=== PATIENT | male | born 1960 | race American Indian/Alaskan Native ===

== ENCOUNTER 2017-10-01 22:38 | Inpatient (IN) | payer OTHER ==
[2017-10-02] MEDS ORDERED: ZOFRAN IV ONE (06:38)
[2017-10-02] MEDS ORDERED: NACL 0.9% 1000 ML 1,000 ML IV ONE ×2 (06:38→10:27)
[2017-10-02] MEDS ORDERED: PROTONIX IV ONE (06:38)
[2017-10-02] MEDS ORDERED: TORADOL IV ONE (06:38)
--- NOTE | 2017-10-02 06:40 | Emergency Department Report ---
ED Abdominal Pain HPI - General Chief Complaint: Abdominal Pain Stated Complaint: ABD PAIN Time Seen by Provider: 10/02/17 06:27 Source: patient Mode of arrival: Ambulatory Limitations: No Limitations - History of Present Illness MD Complaint: abdominal pain -: days(s) (2) Location: diffuse Radiation: none Migration to: no migration Severity: severe Severity scale (0 -10): 10 Quality: sharp Consistency: constant Improves With: nothing Worsens With: nothing Associated Symptoms: nausea, vomiting. denies: diarrhea, constipation - Related Data Home Medications Medication Instructions Recorded Confirmed Last Taken No Known Home Medications [No 10/02/17 10/02/17 Unknown Reported Home Medications] Allergies Allergy/AdvReac Type Severity Reaction Status Date / Time No Known Allergies Allergy Verified 10/02/17 06:58 ED Review of Systems ROS: Stated complaint: ABD PAIN Other details as noted in HPI Comment: All other systems reviewed and negative Constitutional: denies: chills, fever Eyes: denies: eye pain, eye discharge ENT: denies: ear pain Respiratory: denies: cough, orthopnea, shortness of breath Cardiovascular: denies: chest pain, palpitations, dyspnea on exertion Endocrine: no symptoms reported Gastrointestinal: abdominal pain, nausea, vomiting. denies: diarrhea Genitourinary: denies: urgency, dysuria, frequency Musculoskeletal: denies: back pain, joint swelling Skin: denies: rash, lesions Neurological: denies: headache, weakness Psychiatric: denies: anxiety, depression Hematological/Lymphatic: denies: easy bleeding, easy bruising ED Past Medical Hx - Medications Home Medications: Home Medications Medication Instructions Recorded Confirmed Last Taken Type No Known Home Medications [No 10/02/17 10/02/17 Unknown History Reported Home Medications] ED Physical Exam - General Limitations: No Limitations General appearance: alert, in distress - Head Head exam: Present: atraumatic, normocephalic, normal inspection - Eye Eye exam: Present: normal appearance, PERRL, EOMI Pupils: Present: normal accommodation - ENT ENT exam: Present: normal exam, normal orophraynx, mucous membranes dry - Neck Neck exam: Present: normal inspection, full ROM. Absent: tenderness - Respiratory Respiratory exam: Present: normal lung sounds bilaterally. Absent: respiratory distress, wheezes, rales, rhonchi - Cardiovascular Cardiovascular Exam: Present: regular rate, normal rhythm, normal heart sounds - GI/Abdominal GI/Abdominal exam: Present: soft, tenderness, guarding, rebound, hyperactive bowel sounds, other (Colostomy bag with air.). Absent: distended - Rectal Rectal exam: Present: deferred - Extremities Exam Extremities exam: Present: normal inspection, full ROM, normal capillary refill. Absent: tenderness - Back Exam Back exam: Present: normal inspection, full ROM. Absent: tenderness - Neurological Exam Neurological exam: Present: alert, oriented X3, CN II-XII intact - Psychiatric Psychiatric exam: Present: normal affect, normal mood, depressed - Skin Skin exam: Present: warm, dry, intact, normal color ED Course Vital Signs 10/02/17 10/02/17 03:12 06:58 Temperature 98.1 F 98.4 F Pulse Rate 107 H 78 Respiratory 14 16 Rate Blood Pressure 149/107 157/109 O2 Sat by Pulse 99 96 Oximetry - Reevaluation(s) Reevaluation #1: 10/02/17 11:04 I consulted the General Surgeon division controller Dr Prince Foster, he want the hospitalist to admit patient and he will consult on the patient. I discussed patient care with the hospitalist division controller Dr Garcia, he will admit patient for further evaluation and management. ED Medical Decision Making - Lab Data Result diagrams: 10/02/17 06:47 10/02/17 06:47 - Radiology Data Radiology results: report reviewed, image reviewed - Medical Decision Making Abdominal Pain. Bowel Obstruction. Nausea and Vomiting. Critical Care Time: Yes Critical care time in (mins) excluding proc time.: 45 Critical care attestation.: If time is entered above; I have spent that time in minutes in the direct care of this critically ill patient, excluding procedure time. ED Disposition Clinical Impression: Partial bowel obstruction Qualifiers: Intestinal obstruction type: unspecified Qualified Code(s): K56.600 - Partial intestinal obstruction, unspecified as to cause Abdominal pain Qualifiers: Abdominal location: generalized Qualified Code(s): R10.84 - Generalized abdominal pain Nausea and vomiting Qualifiers: Vomiting type: unspecified Vomiting Intractability: non-intractable Qualified Code(s): R11.2 - Nausea with vomiting, unspecified Disposition: OP ADMIT IP TO THIS HOSP Is pt being admited?: Yes Does the pt Need Aspirin: No Condition: Stable Referrals: PRIMARY CARE,MD [Primary Care Provider] - 3-5 Days
[2017-10-02 06:58] LABS: Basophils % (Auto) 0.5 % (0.0-1.8); Eosinophils # (Auto) 0.2 K/mm3 (0.0-0.4); Eosinophils % (Auto) 1.8 % (0.0-4.3); Hematocrit 43.7 % (35.5-45.6); Hemoglobin 14.5 gm/dl (11.8-15.2); Lymphocytes # (Auto) 1.1 K/mm3 (1.2-5.4); Lymphocytes % (Auto) 13.7 % (13.4-35.0); Mean Corpuscular HGB Conc 33 % (32-34); Mean Corpuscular Hemoglobin 27 pg (28-32); Mean Corpuscular Volume 82 fl (84-94); Monocytes % (Auto) 11.7 % (0.0-7.3); Platelet Count 450 K/mm3 (140-440); Red Blood Count 5.31 M/mm3 (3.65-5.03); Red Cell Distribution Width 16.3 % (13.2-15.2)
--- NOTE | 2017-10-02 07:08 | XRay Report ---
FINAL REPORT EXAM: XR CHEST 1V AP HISTORY: Abdominal Pain TECHNIQUE: AP portable view(s) of the chest obtained. PRIORS: None. FINDINGS: No mediastinal shift. Cardiac silhouette is not enlarged. No pneumothorax, effusion, or focal pulmonary opacity identified. No acute skeletal findings. IMPRESSION: No acute pulmonary finding identified.
--- NOTE | 2017-10-02 07:12 | XRay Report ---
FINAL REPORT EXAM: XR ABDOMEN 1V AP HISTORY: Abdominal Pain COMPARISONS: None. FINDINGS: AP portable supine view of the abdomen and pelvis No evident pneumoperitoneum. Multiple dilated central abdominal loops of small bowel. Moderate stool burden. Distal colonic bowel gas and stool extend into the pelvis. No pathologic calcification or fracture. IMPRESSION: Nonspecific bowel gas pattern, with findings most concerning for partial small bowel obstruction versus ileus and/or slow transit. CT is recommended for more sensitive and specific evaluation. Notification initiated via [employer] learning support aide immediately following this dictation on 10/02/2017.
[2017-10-02 07:14] LABS: INR 0.89 (0.87-1.13)
[2017-10-02 07:17] LABS: Hemolysis Index 0
[2017-10-02 07:32] LABS: Alanine Aminotransferase 15 units/L (7-56); Albumin 3.7 g/dL (3.9-5); BUN/Creatinine Ratio 23; Bilirubin,Direct 0.2 mg/dL (0-0.2); Blood Urea Nitrogen 23 mg/dL (9-20); Calcium 9.6 mg/dL (8.4-10.2)
--- NOTE | 2017-10-02 09:34 | Cat Scan Report ---
CT ABDOMEN PELVIS WITH CONTRAST: HISTORY: abdominal pain. COMPARISON: none. TECHNIQUE: Helical CT in 1.25mm intervals following IV contrast. Sagittal and coronal reconstructions. FINDINGS: Lung bases: Normal. Liver: Normal. Biliary system: Normal. Pancreas: Normal. Spleen: Not confidently identified. Splenectomy? Kidneys/ureters/bladder: Normal. Adrenal glands: Normal. Aorta: Normal. Intestines: There are multiple moderately dilated loops of proximal and mid small bowel. There appears to be a transition point in the right lower quadrant. Distal small bowel loops and colon are decompressed. No obvious mass or acute inflammation. Appendix: Normal. Ascites: Small to medium ascites is identified throughout the abdomen. Adenopathy: None. Musculoskeletal: Intact. No suspicious bony lesion is identified. IMPRESSION: Moderate to high-grade partial small bowel obstruction.
[2017-10-02] MEDS ORDERED: DILAUDID IV ONE (10:28)
[2017-10-02] MEDS ORDERED: TYLENOL PO PRN (10:44)
[2017-10-02] MEDS ORDERED: ZOFRAN IV PRN ×2 (10:44→10:52)
[2017-10-02] MEDS ORDERED: SODIUM CHLORIDE FLUSH SYRINGE 10 ML IV PRN (10:44)
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
[2017-10-02 13:35] LABS: Hyaline Casts,Urine 2 /LPF; Mucus,Urine 3+ /HPF
[2017-10-02 13:49] LABS: Bilirubin,Urine NEG (Negative); Blood,Urine NEG (Negative); Color,Urine Amber (Yellow)
[2017-10-02] MEDS ORDERED: ATIVAN IV ONE (15:52)
[2017-10-02] MEDS ORDERED: NACL 0.9% 1000 ML 2,000 ML IV ONE (15:58)
[2017-10-02] MEDS: D5/0.45NS 1,000 ML IV SCH (16:30)
[2017-10-02] MEDS: SODIUM CHLORIDE FLUSH SYRINGE 10 ML IV SCH (22:05)
[2017-10-03] MEDS: D5/0.45NS 1,000 ML IV SCH ×2 (00:39→10:24)
[2017-10-03 06:35] LABS: Basophils % (Auto) 0.6 % (0.0-1.8); Eosinophils # (Auto) 0.3 K/mm3 (0.0-0.4); Eosinophils % (Auto) 3.7 % (0.0-4.3); Hematocrit 38.7 % (35.5-45.6); Hemoglobin 12.5 gm/dl (11.8-15.2); Lymphocytes # (Auto) 0.9 K/mm3 (1.2-5.4); Lymphocytes % (Auto) 11.6 % (13.4-35.0); Mean Corpuscular HGB Conc 32 % (32-34); Mean Corpuscular Hemoglobin 27 pg (28-32); Mean Corpuscular Volume 84 fl (84-94); Monocytes # (Auto) 0.7 K/mm3 (0.0-0.8); Monocytes % (Auto) 8.6 % (0.0-7.3); Platelet Count 365 K/mm3 (140-440); Red Blood Count 4.63 M/mm3 (3.65-5.03); Red Cell Distribution Width 16.3 % (13.2-15.2)
[2017-10-03 07:02] LABS: BUN/Creatinine Ratio 21; Blood Urea Nitrogen 15 mg/dL (9-20); Calcium 8.6 mg/dL (8.4-10.2); Hemolysis Index 11
--- NOTE | 2017-10-03 08:56 | XRay Report ---
ABDOMINAL SERIES: History: Followup partial small bowel obstruction. A nasogastric tube has been inserted since yesterday's exam which terminates in the fundus of the stomach. No significant change is appreciated in the multiple dilated small bowel loops with large air-fluid levels. The colon is decompressed. No free air is identified. Minor bibasilar atelectatic changes are noted in the lower lobes. Normal heart size and pulmonary vascularity. IMPRESSION: No significant change in the partial small bowel obstruction pattern.
--- NOTE | 2017-10-03 09:23 | Progress Note ---
Assessment and Plan - Patient Problems (1) Partial bowel obstruction Current Visit: Yes Status: Acute Qualifiers: Intestinal obstruction type: unspecified Qualified Code(s): K56.600 - Partial intestinal obstruction, unspecified as to cause Plan to address problem: Patient appears stable with a benign abdomen. Labs are better in that his dehdyration appears improved. Films look stable with air and stool seen in the colon. Would continue current treatment 1 more day. Films in AM. If no obvious improvement, will order small bowel follow through. time=10min (2) Dehydration Current Visit: Yes Status: Resolved Plan to address problem: appears resolved Subjective Date of service: 10/03/17 Patient Reports: Positive: feels better, pain is less. Negative: nausea, vomiting Objective Vital Signs - 12hr 10/02/17 10/03/17 10/03/17 23:36 05:59 06:00 Temperature 98.1 F 98.7 F Pulse Rate 104 H 89 91 H Respiratory 20 20 Rate Blood Pressure 151/99 161/104 O2 Sat by Pulse 94 100 100 Oximetry - General physical appearance no distress, no pain, other (appears sleepy. Not interested in talking. ) - Respiratory normal respiratory effort - Abdomen soft, not tender, distended (mild), not guarding, not rigid, other (ostomy pink. No air or stool in bag currently. NGT with more gastric appearing fluid) - Integumentary no rash, no growths, no abnormal pigmentation - Labs 10/03/17 05:11 10/03/17 05:11 Diabetes panel 10/03/17 Range/Units 05:11 Sodium 139 (137-145) mmol/L Potassium 3.5 L (3.6-5.0) mmol/L Chloride 102.3 (98-107) mmol/L Carbon Dioxide 21 L (22-30) mmol/L BUN 15 (9-20) mg/dL Creatinine 0.7 L D (0.8-1.5) mg/dL Glucose 97 (75-100) mg/dL Calcium 8.6 (8.4-10.2) mg/dL Calcium panel 10/03/17 Range/Units 05:11 Calcium 8.6 (8.4-10.2) mg/dL Pituitary panel 10/03/17 Range/Units 05:11 Sodium 139 (137-145) mmol/L Potassium 3.5 L (3.6-5.0) mmol/L Chloride 102.3 (98-107) mmol/L Carbon Dioxide 21 L (22-30) mmol/L BUN 15 (9-20) mg/dL Creatinine 0.7 L D (0.8-1.5) mg/dL Glucose 97 (75-100) mg/dL Calcium 8.6 (8.4-10.2) mg/dL Adrenal panel 10/03/17 Range/Units 05:11 Sodium 139 (137-145) mmol/L Potassium 3.5 L (3.6-5.0) mmol/L Chloride 102.3 (98-107) mmol/L Carbon Dioxide 21 L (22-30) mmol/L BUN 15 (9-20) mg/dL Creatinine 0.7 L D (0.8-1.5) mg/dL Glucose 97 (75-100) mg/dL Calcium 8.6 (8.4-10.2) mg/dL - Imaging Chest x-ray: report reviewed, image reviewed Abdominal x-ray: report reviewed, image reviewed
[2017-10-03] MEDS: SODIUM CHLORIDE FLUSH SYRINGE 10 ML IV SCH (10:15)
[2017-10-03] MEDS: MORPHINE IV PRN (12:20)
--- NOTE | 2017-10-03 12:50 | Progress Note ---
Assessment and Plan Assessment and plan: 57-year-old -[place] presented to the emergency department complaining of abdominal pain positive last 2 days. Partial small bowel obstruction - CT and x-ray suggestive - Gen. surgery consulted - patient has NG tube in place - Abdominal pain is getting better - Pain control with IV medications Dehydration - On IV fluid - Resolved Hypokalemia - repleted S/P colostomy - Colostomy care DVT prophylaxis - SCDs Disposition - Continue inpatient care History Interval history: Patient was seen and evaluated this morning, abdominal pain subsided, patient has NG tube in place. Hospitalist Physical - Physical exam Narrative exam: Not in cardiopulmonary distress. The patient appeared well nourished and normally developed. Vital signs as documented. Head exam is unremarkable. No scleral icterus . Neck is without jugular venous distension, thyromegaly, or carotid bruits. Lungs are clear to auscultation. Cardiac exam reveals regular rate and Rhythm. First and second heart sounds normal. No murmurs, rubs or gallops. Abdominal exam reveals colostomy bag in the LLQ, abdomen is soft and nontender. Extremities are nonedematous and both femoral and pedal pulses are normal. KNITTER WIRE MESH: Alert and oriented 3. No focal weakness. - Constitutional Vitals: Temp Pulse Resp BP Pulse Ox 98.2 F 98 H 19 164/99 95 10/03/17 11:31 10/03/17 11:31 10/03/17 11:31 10/03/17 11:31 10/03/17 11:31 Results - Labs CBC & Chem 7: 10/03/17 05:11 10/03/17 05:11 Labs: Laboratory Last Values WBC 7.7 K/mm3 (4.5-11.0) 10/03/17 05:11 RBC 4.63 M/mm3 (3.65-5.03) 10/03/17 05:11 Hgb 12.5 gm/dl (11.8-15.2) 10/03/17 05:11 Hct 38.7 % (35.5-45.6) 10/03/17 05:11 MCV 84 fl (84-94) 10/03/17 05:11 MCH 27 pg (28-32) L 10/03/17 05:11 MCHC 32 % (32-34) 10/03/17 05:11 RDW 16.3 % (13.2-15.2) H 10/03/17 05:11 Plt Count 365 K/mm3 (140-440) 10/03/17 05:11 Lymph % (Auto) 11.6 % (13.4-35.0) L 10/03/17 05:11 [place] % (Auto) 8.6 % (0.0-7.3) H 10/03/17 05:11 Eos % (Auto) 3.7 % (0.0-4.3) 10/03/17 05:11 Baso % (Auto) 0.6 % (0.0-1.8) 10/03/17 05:11 Lymph # 0.9 K/mm3 (1.2-5.4) L 10/03/17 05:11 [place] # 0.7 K/mm3 (0.0-0.8) 10/03/17 05:11 Eos # 0.3 K/mm3 (0.0-0.4) 10/03/17 05:11 Baso # 0.0 K/mm3 (0.0-0.1) 10/03/17 05:11 Seg Neutrophils % 75.5 % (40.0-70.0) H 10/03/17 05:11 Seg Neutrophils # 5.8 K/mm3 (1.8-7.7) 10/03/17 05:11 PT 12.5 Sec. (12.2-14.9) 10/02/17 06:47 INR 0.89 (0.87-1.13) 10/02/17 06:47 Sodium 139 mmol/L (137-145) 10/03/17 05:11 Potassium 3.5 mmol/L (3.6-5.0) L 10/03/17 05:11 Chloride 102.3 mmol/L (98-107) 10/03/17 05:11 Carbon Dioxide 21 mmol/L (22-30) L 10/03/17 05:11 Anion Gap 19 mmol/L 10/03/17 05:11 BUN 15 mg/dL (9-20) 10/03/17 05:11 Creatinine 0.7 mg/dL (0.8-1.5) L D 10/03/17 05:11 Estimated GFR > 60 ml/min 10/03/17 05:11 BUN/Creatinine Ratio 21 % 10/03/17 05:11 Glucose 97 mg/dL (75-100) 10/03/17 05:11 POC Glucose 99 (70-105) 10/02/17 21:56 Calcium 8.6 mg/dL (8.4-10.2) 10/03/17 05:11 Total Bilirubin < 0.20 mg/dL (0.1-1.2) 10/02/17 06:47 Direct Bilirubin 0.2 mg/dL (0-0.2) 10/02/17 06:47 Indirect Bilirubin 0.8 mg/dL 10/02/17 06:47 AST 31 units/L (5-40) 10/02/17 06:47 ALT 15 units/L (7-56) 10/02/17 06:47 Alkaline Phosphatase 101 units/L (35-129) 10/02/17 06:47 Total Protein 7.6 g/dL (6.3-8.2) 10/02/17 06:47 Albumin 3.7 g/dL (3.9-5) L 10/02/17 06:47 Albumin/Globulin Ratio 0.9 % 10/02/17 06:47 Amylase 42 units/L (27-131) 10/02/17 06:47 Lipase 21 units/L (13-60) 10/02/17 06:47 Urine Color [place] (Yellow) 10/02/17 11:40 Urine Turbidity Clear (Clear) 10/02/17 11:40 Urine pH 5.0 (5.0-7.0) 10/02/17 11:40 Ur Specific [place] 1.060 (1.003-1.030) H 10/02/17 11:40 Urine Protein 30 mg/dl mg/dL (Negative) 10/02/17 11:40 Urine Glucose (UA) Neg mg/dL (Negative) 10/02/17 11:40 Urine Ketones Neg mg/dL (Negative) 10/02/17 11:40 Urine Blood Neg (Negative) 10/02/17 11:40 Urine Nitrite Neg (Negative) 10/02/17 11:40 Ur Reducing Substances Not Reportable 10/02/17 11:40 Urine Bilirubin Neg (Negative) 10/02/17 11:40 Urine Ictotest Not Reportable 10/02/17 11:40 Urine Urobilinogen 4.0 mg/dL (<2.0) 10/02/17 11:40 Ur Leukocyte Esterase Neg (Negative) 10/02/17 11:40 Urine WBC (Auto) 6.0 /HPF (0.0-6.0) 10/02/17 11:40 Urine RBC (Auto) 6.0 /HPF (0.0-6.0) 10/02/17 11:40 U Epithel Cells (Auto) 2.0 /HPF (0-13.0) 10/02/17 11:40 Hyaline Casts 2 /LPF 10/02/17 11:40 Urine Mucus 3+ /HPF 10/02/17 11:40
[2017-10-03] MEDS: KCL 10MEQ/100ML 10 MEQ/100 ML BAG IV SCH ×2 (17:06→19:20)
[2017-10-04 06:13] LABS: BUN/Creatinine Ratio 17; Blood Urea Nitrogen 10 mg/dL (9-20); Calcium 8.6 mg/dL (8.4-10.2); Hemolysis Index 3
--- NOTE | 2017-10-04 08:21 | Progress Note ---
Assessment and Plan - Patient Problems (1) Partial bowel obstruction Current Visit: Yes Status: Acute Qualifiers: Intestinal obstruction type: unspecified Qualified Code(s): K56.600 - Partial intestinal obstruction, unspecified as to cause Plan to address problem: Patient appears stable with a benign abdomen. Labs are better in that his dehdyration appears improved. Appears to have begun resolution of PSBO. Will clamp NGT and have a trial of clears. Will assess in afternoon. If doing well, will remove NGT. time=10min Subjective Date of service: 10/04/17 Patient Reports: Positive: feels better, pain is less, flatus, bowel movement. Negative: nausea, vomiting Objective Vital Signs - 12hr 10/03/17 10/03/17 10/04/17 22:00 23:37 04:52 Temperature 97.8 F 97.8 F Pulse Rate 92 H 85 Respiratory 22 18 24 Rate Blood Pressure 165/101 149/104 O2 Sat by Pulse 95 96 Oximetry - General physical appearance no distress, no pain, other (looks better. More awake today) - Respiratory normal respiratory effort - Abdomen soft, not tender, bowel sounds normal, not distended, not guarding, not rigid, other (ostomy bag with air and liquid stool) - Integumentary no rash, no growths, no abnormal pigmentation - Labs 10/03/17 05:11 10/04/17 04:55 Diabetes panel 10/04/17 Range/Units 04:55 Sodium 137 (137-145) mmol/L Potassium 3.3 L (3.6-5.0) mmol/L Chloride 99.9 (98-107) mmol/L Carbon Dioxide 25 (22-30) mmol/L BUN 10 (9-20) mg/dL Creatinine 0.6 L (0.8-1.5) mg/dL Glucose 93 (75-100) mg/dL Calcium 8.6 (8.4-10.2) mg/dL Calcium panel 10/04/17 Range/Units 04:55 Calcium 8.6 (8.4-10.2) mg/dL Pituitary panel 10/04/17 Range/Units 04:55 Sodium 137 (137-145) mmol/L Potassium 3.3 L (3.6-5.0) mmol/L Chloride 99.9 (98-107) mmol/L Carbon Dioxide 25 (22-30) mmol/L BUN 10 (9-20) mg/dL Creatinine 0.6 L (0.8-1.5) mg/dL Glucose 93 (75-100) mg/dL Calcium 8.6 (8.4-10.2) mg/dL Adrenal panel 10/04/17 Range/Units 04:55 Sodium 137 (137-145) mmol/L Potassium 3.3 L (3.6-5.0) mmol/L Chloride 99.9 (98-107) mmol/L Carbon Dioxide 25 (22-30) mmol/L BUN 10 (9-20) mg/dL Creatinine 0.6 L (0.8-1.5) mg/dL Glucose 93 (75-100) mg/dL Calcium 8.6 (8.4-10.2) mg/dL
[2017-10-04] MEDS: SODIUM CHLORIDE FLUSH SYRINGE 10 ML IV SCH (10:00)
--- NOTE | 2017-10-04 10:12 | XRay Report ---
Abdomen 2 views: Compared to 10/03/17. History: Followup of small bowel obstruction. Findings: Tip of NG tube is noted in stomach. Distended loops of small bowel are identified with contrast in colon. Colon does not appear distended. Compared to previous study there is more contrast noted in the colon and few loops of small bowel appear less distended compared to previous study. Impression: Some improvement noted compared to previous study.
[2017-10-04] MEDS: PAXIL PO SCH (11:42)
[2017-10-04] MEDS ORDERED: POTASSIUM CHLORIDE FEEDTUBE ONE ×2 (12:51→17:00)
--- NOTE | 2017-10-04 12:51 | Progress Note ---
Assessment and Plan Assessment and plan: 57-year-old -[place]atemalan presented to the emergency department complaining of abdominal pain positive last 2 days. Partial small bowel obstruction - CT and x-ray suggestive, repeat x-ray showed some improvement - Gen. surgery consulted - Patient started on clear liquid diet - Abdominal pain is getting better - Pain control with IV medications Dehydration - resolved, started on clear liquid diet Hypokalemia - repleted S/P colostomy - Colostomy care Patient said he has been taking paxil and i added that DVT prophylaxis - SCDs Disposition - Continue inpatient care History Interval history: Patient was seen and evaluated this morning, abdominal pain subsided, NG tube was clamped but the patient took it off. Hospitalist Physical - Physical exam Narrative exam: Not in cardiopulmonary distress. The patient appeared well nourished and normally developed. Vital signs as documented. Head exam is unremarkable. No scleral icterus . Neck is without jugular venous distension, thyromegaly, or carotid bruits. Lungs are clear to auscultation. Cardiac exam reveals regular rate and Rhythm. First and second heart sounds normal. No murmurs, rubs or gallops. Abdominal exam reveals colostomy bag in the LLQ, abdomen is soft and nontender. Extremities are nonedematous and both femoral and pedal pulses are normal. 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 No focal weakness. - Constitutional Vitals: Temp Pulse Resp BP Pulse Ox 97.8 F 85 24 149/104 96 10/04/17 04:52 10/04/17 04:52 10/04/17 04:52 10/04/17 04:52 10/04/17 04:52 Results - Labs CBC & Chem 7: 10/03/17 05:11 10/04/17 04:55 Labs: Laboratory Last Values WBC 7.7 K/mm3 (4.5-11.0) 10/03/17 05:11 RBC 4.63 M/mm3 (3.65-5.03) 10/03/17 05:11 Hgb 12.5 gm/dl (11.8-15.2) 10/03/17 05:11 Hct 38.7 % (35.5-45.6) 10/03/17 05:11 MCV 84 fl (84-94) 10/03/17 05:11 MCH 27 pg (28-32) L 10/03/17 05:11 MCHC 32 % (32-34) 10/03/17 05:11 RDW 16.3 % (13.2-15.2) H 10/03/17 05:11 Plt Count 365 K/mm3 (140-440) 10/03/17 05:11 Lymph % (Auto) 11.6 % (13.4-35.0) L 10/03/17 05:11 [place] % (Auto) 8.6 % (0.0-7.3) H 10/03/17 05:11 Eos % (Auto) 3.7 % (0.0-4.3) 10/03/17 05:11 Baso % (Auto) 0.6 % (0.0-1.8) 10/03/17 05:11 Lymph # 0.9 K/mm3 (1.2-5.4) L 10/03/17 05:11 [place] # 0.7 K/mm3 (0.0-0.8) 10/03/17 05:11 Eos # 0.3 K/mm3 (0.0-0.4) 10/03/17 05:11 Baso # 0.0 K/mm3 (0.0-0.1) 10/03/17 05:11 Seg Neutrophils % 75.5 % (40.0-70.0) H 10/03/17 05:11 Seg Neutrophils # 5.8 K/mm3 (1.8-7.7) 10/03/17 05:11 PT 12.5 Sec. (12.2-14.9) 10/02/17 06:47 INR 0.89 (0.87-1.13) 10/02/17 06:47 Sodium 137 mmol/L (137-145) 10/04/17 04:55 Potassium 3.3 mmol/L (3.6-5.0) L 10/04/17 04:55 Chloride 99.9 mmol/L (98-107) 10/04/17 04:55 Carbon Dioxide 25 mmol/L (22-30) 10/04/17 04:55 Anion Gap 15 mmol/L 10/04/17 04:55 BUN 10 mg/dL (9-20) 10/04/17 04:55 Creatinine 0.6 mg/dL (0.8-1.5) L 10/04/17 04:55 Estimated GFR > 60 ml/min 10/04/17 04:55 BUN/Creatinine Ratio 17 % 10/04/17 04:55 Glucose 93 mg/dL (75-100) 10/04/17 04:55 POC Glucose 99 (70-105) 10/02/17 21:56 Calcium 8.6 mg/dL (8.4-10.2) 10/04/17 04:55 Total Bilirubin < 0.20 mg/dL (0.1-1.2) 10/02/17 06:47 Direct Bilirubin 0.2 mg/dL (0-0.2) 10/02/17 06:47 Indirect Bilirubin 0.8 mg/dL 10/02/17 06:47 AST 31 units/L (5-40) 10/02/17 06:47 ALT 15 units/L (7-56) 10/02/17 06:47 Alkaline Phosphatase 101 units/L (35-129) 10/02/17 06:47 Total Protein 7.6 g/dL (6.3-8.2) 10/02/17 06:47 Albumin 3.7 g/dL (3.9-5) L 10/02/17 06:47 Albumin/Globulin Ratio 0.9 % 10/02/17 06:47 Amylase 42 units/L (27-131) 10/02/17 06:47 Lipase 21 units/L (13-60) 10/02/17 06:47 Urine Color [place] (Yellow) 10/02/17 11:40 Urine Turbidity Clear (Clear) 10/02/17 11:40 Urine pH 5.0 (5.0-7.0) 10/02/17 11:40 Ur Specific [place] 1.060 (1.003-1.030) H 10/02/17 11:40 Urine Protein 30 mg/dl mg/dL (Negative) 10/02/17 11:40 Urine Glucose (UA) Neg mg/dL (Negative) 10/02/17 11:40 Urine Ketones Neg mg/dL (Negative) 10/02/17 11:40 Urine Blood Neg (Negative) 10/02/17 11:40 Urine Nitrite Neg (Negative) 10/02/17 11:40 Ur Reducing Substances Not Reportable 10/02/17 11:40 Urine Bilirubin Neg (Negative) 10/02/17 11:40 Urine Ictotest Not Reportable 10/02/17 11:40 Urine Urobilinogen 4.0 mg/dL (<2.0) 10/02/17 11:40 Ur Leukocyte Esterase Neg (Negative) 10/02/17 11:40 Urine WBC (Auto) 6.0 /HPF (0.0-6.0) 10/02/17 11:40 Urine RBC (Auto) 6.0 /HPF (0.0-6.0) 10/02/17 11:40 U Epithel Cells (Auto) 2.0 /HPF (0-13.0) 10/02/17 11:40 Hyaline Casts 2 /LPF 10/02/17 11:40 Urine Mucus 3+ /HPF 10/02/17 11:40
--- NOTE | 2017-10-04 16:09 | Event Note ---
Date: 10/04/17 Planned f/u - Pt reports that he sneezed out the NGT, but he feels better now. I advised that he stay on clears for now and go very slowly. We will slowly advance his diet over the weekend as he tolerates it. Please call with questions.
[2017-10-05 05:50] LABS: BUN/Creatinine Ratio 11; Blood Urea Nitrogen 8 mg/dL (9-20); Calcium 9.2 mg/dL (8.4-10.2); Hemolysis Index 61
[2017-10-05] MEDS: SODIUM CHLORIDE FLUSH SYRINGE 10 ML IV SCH ×3 (10:58→11:00)
[2017-10-05] MEDS: PAXIL PO SCH (10:58)
--- NOTE | 2017-10-05 12:28 | Progress Note ---
Assessment and Plan Assessment and plan: 57-year-old -[place]ian presented to the emergency department complaining of abdominal pain positive last 2 days. Partial small bowel obstruction - CT and x-ray suggestive, repeat x-ray showed some improvement - Gen. surgery consult appreciated - Patient's diet advanced to full liquid diet - Abdominal pain is getting better - Pain is controlled Dehydration - resolved Hypokalemia - repleted - corrected S/P colostomy - Colostomy care Patient is on paxil DVT prophylaxis - SCDs Disposition - Continue inpatient care History Interval history: Patient was seen and evaluated this morning, abdominal pain subsided, Patient tolerated clear liquid diet, advanced to full liquid Hospitalist Physical - Physical exam Narrative exam: Not in cardiopulmonary distress. The patient appeared well nourished and normally developed. Vital signs as documented. Head exam is unremarkable. No scleral icterus . Neck is without jugular venous distension, thyromegaly, or carotid bruits. Lungs are clear to auscultation. Cardiac exam reveals regular rate and Rhythm. First and second heart sounds normal. No murmurs, rubs or gallops. Abdominal exam reveals colostomy bag in the LLQ, abdomen is soft and nontender. Extremities are nonedematous and both femoral and pedal pulses are normal. FOREIGN DIPLOMAT: Alert and oriented 3. No focal weakness. - Constitutional Vitals: Temp Pulse Resp BP Pulse Ox 97.8 F 63 20 128/81 96 10/05/17 05:21 10/05/17 05:21 10/05/17 05:21 10/05/17 05:21 10/05/17 05:21 Results - Labs CBC & Chem 7: 10/03/17 05:11 10/05/17 04:21 Labs: Laboratory Last Values WBC 7.7 K/mm3 (4.5-11.0) 10/03/17 05:11 RBC 4.63 M/mm3 (3.65-5.03) 10/03/17 05:11 Hgb 12.5 gm/dl (11.8-15.2) 10/03/17 05:11 Hct 38.7 % (35.5-45.6) 10/03/17 05:11 MCV 84 fl (84-94) 10/03/17 05:11 MCH 27 pg (28-32) L 10/03/17 05:11 MCHC 32 % (32-34) 10/03/17 05:11 RDW 16.3 % (13.2-15.2) H 10/03/17 05:11 Plt Count 365 K/mm3 (140-440) 10/03/17 05:11 Lymph % (Auto) 11.6 % (13.4-35.0) L 10/03/17 05:11 [place] % (Auto) 8.6 % (0.0-7.3) H 10/03/17 05:11 Eos % (Auto) 3.7 % (0.0-4.3) 10/03/17 05:11 Baso % (Auto) 0.6 % (0.0-1.8) 10/03/17 05:11 Lymph # 0.9 K/mm3 (1.2-5.4) L 10/03/17 05:11 [place] # 0.7 K/mm3 (0.0-0.8) 10/03/17 05:11 Eos # 0.3 K/mm3 (0.0-0.4) 10/03/17 05:11 Baso # 0.0 K/mm3 (0.0-0.1) 10/03/17 05:11 Seg Neutrophils % 75.5 % (40.0-70.0) H 10/03/17 05:11 Seg Neutrophils # 5.8 K/mm3 (1.8-7.7) 10/03/17 05:11 PT 12.5 Sec. (12.2-14.9) 10/02/17 06:47 INR 0.89 (0.87-1.13) 10/02/17 06:47 Sodium 137 mmol/L (137-145) 10/05/17 04:21 Potassium 4.8 mmol/L (3.6-5.0) D 10/05/17 04:21 Chloride 98.3 mmol/L (98-107) 10/05/17 04:21 Carbon Dioxide 27 mmol/L (22-30) 10/05/17 04:21 Anion Gap 17 mmol/L 10/05/17 04:21 BUN 8 mg/dL (9-20) L 10/05/17 04:21 Creatinine 0.7 mg/dL (0.8-1.5) L 10/05/17 04:21 Estimated GFR > 60 ml/min 10/05/17 04:21 BUN/Creatinine Ratio 11 % 10/05/17 04:21 Glucose 87 mg/dL (75-100) 10/05/17 04:21 POC Glucose 99 (70-105) 10/02/17 21:56 Calcium 9.2 mg/dL (8.4-10.2) 10/05/17 04:21 Total Bilirubin < 0.20 mg/dL (0.1-1.2) 10/02/17 06:47 Direct Bilirubin 0.2 mg/dL (0-0.2) 10/02/17 06:47 Indirect Bilirubin 0.8 mg/dL 10/02/17 06:47 AST 31 units/L (5-40) 10/02/17 06:47 ALT 15 units/L (7-56) 10/02/17 06:47 Alkaline Phosphatase 101 units/L (35-129) 10/02/17 06:47 Total Protein 7.6 g/dL (6.3-8.2) 10/02/17 06:47 Albumin 3.7 g/dL (3.9-5) L 10/02/17 06:47 Albumin/Globulin Ratio 0.9 % 10/02/17 06:47 Amylase 42 units/L (27-131) 10/02/17 06:47 Lipase 21 units/L (13-60) 10/02/17 06:47 Urine Color [place] (Yellow) 10/02/17 11:40 Urine Turbidity Clear (Clear) 10/02/17 11:40 Urine pH 5.0 (5.0-7.0) 10/02/17 11:40 Ur Specific [place] 1.060 (1.003-1.030) H 10/02/17 11:40 Urine Protein 30 mg/dl mg/dL (Negative) 10/02/17 11:40 Urine Glucose (UA) Neg mg/dL (Negative) 10/02/17 11:40 Urine Ketones Neg mg/dL (Negative) 10/02/17 11:40 Urine Blood Neg (Negative) 10/02/17 11:40 Urine Nitrite Neg (Negative) 10/02/17 11:40 Ur Reducing Substances Not Reportable 10/02/17 11:40 Urine Bilirubin Neg (Negative) 10/02/17 11:40 Urine Ictotest Not Reportable 10/02/17 11:40 Urine Urobilinogen 4.0 mg/dL (<2.0) 10/02/17 11:40 Ur Leukocyte Esterase Neg (Negative) 10/02/17 11:40 Urine WBC (Auto) 6.0 /HPF (0.0-6.0) 10/02/17 11:40 Urine RBC (Auto) 6.0 /HPF (0.0-6.0) 10/02/17 11:40 U Epithel Cells (Auto) 2.0 /HPF (0-13.0) 10/02/17 11:40 Hyaline Casts 2 /LPF 10/02/17 11:40 Urine Mucus 3+ /HPF 10/02/17 11:40
--- NOTE | 2017-10-05 12:33 | Progress Note ---
Assessment and Plan 57 yo M with pSBO, resolving Plan: 1. advanced to full liquids by hospitalist service, would continue fulls only and not advance further 2. maintenance IVF 3. prn pain control 4. DVT ppx 5. OOB/ambulate Thank you for this consultation, please call with questions or concerns. Subjective Date of service: 10/05/17 Narrative: Pt seen and examined. c/o crampy abdominal pain at times when he tries to take in too much liquid at one time. His colostomy is working well. No n/v. Objective Vital Signs - 12hr 10/05/17 05:21 Temperature 97.8 F Pulse Rate 63 Respiratory 20 Rate Blood Pressure 128/81 O2 Sat by Pulse 96 Oximetry - General physical appearance Narrative Exam: Gen: AAOx3. NAD CV: S1, S2+ resp: even and unlabored Abd: soft, NT, mildly distended. ostomy with mixture of liquid and soft brown stool in bag. + Bowel sounds in all 4 quadrants. Ext; no c/c/e - Labs 10/03/17 05:11 10/05/17 04:21 Diabetes panel 10/05/17 Range/Units 04:21 Sodium 137 (137-145) mmol/L Potassium 4.8 D (3.6-5.0) mmol/L Chloride 98.3 (98-107) mmol/L Carbon Dioxide 27 (22-30) mmol/L BUN 8 L (9-20) mg/dL Creatinine 0.7 L (0.8-1.5) mg/dL Glucose 87 (75-100) mg/dL Calcium 9.2 (8.4-10.2) mg/dL Calcium panel 10/05/17 Range/Units 04:21 Calcium 9.2 (8.4-10.2) mg/dL Pituitary panel 10/05/17 Range/Units 04:21 Sodium 137 (137-145) mmol/L Potassium 4.8 D (3.6-5.0) mmol/L Chloride 98.3 (98-107) mmol/L Carbon Dioxide 27 (22-30) mmol/L BUN 8 L (9-20) mg/dL Creatinine 0.7 L (0.8-1.5) mg/dL Glucose 87 (75-100) mg/dL Calcium 9.2 (8.4-10.2) mg/dL Adrenal panel 10/05/17 Range/Units 04:21 Sodium 137 (137-145) mmol/L Potassium 4.8 D (3.6-5.0) mmol/L Chloride 98.3 (98-107) mmol/L Carbon Dioxide 27 (22-30) mmol/L BUN 8 L (9-20) mg/dL Creatinine 0.7 L (0.8-1.5) mg/dL Glucose 87 (75-100) mg/dL Calcium 9.2 (8.4-10.2) mg/dL
[2017-10-05] MEDS: MORPHINE IV PRN ×2 (12:37→21:21)
[2017-10-05] MEDS ORDERED: MOTRIN PO ONE (22:00)
[2017-10-05] MEDS ORDERED: AMBIEN PO ONE (22:00)
--- NOTE | 2017-10-06 09:10 | Progress Note ---
Assessment and Plan Assessment and plan: 57-year-old -[place] presented to the emergency department complaining of abdominal pain positive last 2 days. Partial small bowel obstruction - CT and x-ray suggestive, repeat x-ray showed some improvement - Gen. surgery consult appreciated - Patient is on full liquid diet, will be advanced to soft diet to night - Abdominal pain is getting better - Pain is controlled Dehydration - resolved Hypokalemia - repleted - corrected S/P colostomy - Colostomy care Patient is on paxil DVT prophylaxis - SCDs Disposition - Patient will be discharged tomorrow if he tolerates soft diet. History Interval history: Patient was seen and evaluated this morning, abdominal pain subsided, Patient is on full liquid diet Hospitalist Physical - Physical exam Narrative exam: Not in cardiopulmonary distress. The patient appeared well nourished and normally developed. Vital signs as documented. Head exam is unremarkable. No scleral icterus . Neck is without jugular venous distension, thyromegaly, or carotid bruits. Lungs are clear to auscultation. Cardiac exam reveals regular rate and Rhythm. First and second heart sounds normal. No murmurs, rubs or gallops. Abdominal exam reveals colostomy bag in the LLQ, abdomen is soft and nontender. Extremities are nonedematous and both femoral and pedal pulses are normal. 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 No focal weakness. - Constitutional Vitals: Temp Pulse Resp BP Pulse Ox 98.1 F 78 20 156/98 98 10/06/17 05:26 10/06/17 05:26 10/06/17 05:26 10/06/17 05:26 10/06/17 05:26 Results - Labs CBC & Chem 7: 10/03/17 05:11 10/05/17 04:21 Labs: Laboratory Last Values WBC 7.7 K/mm3 (4.5-11.0) 10/03/17 05:11 RBC 4.63 M/mm3 (3.65-5.03) 10/03/17 05:11 Hgb 12.5 gm/dl (11.8-15.2) 10/03/17 05:11 Hct 38.7 % (35.5-45.6) 10/03/17 05:11 MCV 84 fl (84-94) 10/03/17 05:11 MCH 27 pg (28-32) L 10/03/17 05:11 MCHC 32 % (32-34) 10/03/17 05:11 RDW 16.3 % (13.2-15.2) H 10/03/17 05:11 Plt Count 365 K/mm3 (140-440) 10/03/17 05:11 Lymph % (Auto) 11.6 % (13.4-35.0) L 10/03/17 05:11 [place] % (Auto) 8.6 % (0.0-7.3) H 10/03/17 05:11 Eos % (Auto) 3.7 % (0.0-4.3) 10/03/17 05:11 Baso % (Auto) 0.6 % (0.0-1.8) 10/03/17 05:11 Lymph # 0.9 K/mm3 (1.2-5.4) L 10/03/17 05:11 [place] # 0.7 K/mm3 (0.0-0.8) 10/03/17 05:11 Eos # 0.3 K/mm3 (0.0-0.4) 10/03/17 05:11 Baso # 0.0 K/mm3 (0.0-0.1) 10/03/17 05:11 Seg Neutrophils % 75.5 % (40.0-70.0) H 10/03/17 05:11 Seg Neutrophils # 5.8 K/mm3 (1.8-7.7) 10/03/17 05:11 PT 12.5 Sec. (12.2-14.9) 10/02/17 06:47 INR 0.89 (0.87-1.13) 10/02/17 06:47 Sodium 137 mmol/L (137-145) 10/05/17 04:21 Potassium 4.8 mmol/L (3.6-5.0) D 10/05/17 04:21 Chloride 98.3 mmol/L (98-107) 10/05/17 04:21 Carbon Dioxide 27 mmol/L (22-30) 10/05/17 04:21 Anion Gap 17 mmol/L 10/05/17 04:21 BUN 8 mg/dL (9-20) L 10/05/17 04:21 Creatinine 0.7 mg/dL (0.8-1.5) L 10/05/17 04:21 Estimated GFR > 60 ml/min 10/05/17 04:21 BUN/Creatinine Ratio 11 % 10/05/17 04:21 Glucose 87 mg/dL (75-100) 10/05/17 04:21 POC Glucose 99 (70-105) 10/02/17 21:56 Calcium 9.2 mg/dL (8.4-10.2) 10/05/17 04:21 Total Bilirubin < 0.20 mg/dL (0.1-1.2) 10/02/17 06:47 Direct Bilirubin 0.2 mg/dL (0-0.2) 10/02/17 06:47 Indirect Bilirubin 0.8 mg/dL 10/02/17 06:47 AST 31 units/L (5-40) 10/02/17 06:47 ALT 15 units/L (7-56) 10/02/17 06:47 Alkaline Phosphatase 101 units/L (35-129) 10/02/17 06:47 Total Protein 7.6 g/dL (6.3-8.2) 10/02/17 06:47 Albumin 3.7 g/dL (3.9-5) L 10/02/17 06:47 Albumin/Globulin Ratio 0.9 % 10/02/17 06:47 Amylase 42 units/L (27-131) 10/02/17 06:47 Lipase 21 units/L (13-60) 10/02/17 06:47 Urine Color Cady (Yellow) 10/02/17 11:40 Urine Turbidity Clear (Clear) 10/02/17 11:40 Urine pH 5.0 (5.0-7.0) 10/02/17 11:40 Ur Specific Sheldon 1.060 (1.003-1.030) H 10/02/17 11:40 Urine Protein 30 mg/dl mg/dL (Negative) 10/02/17 11:40 Urine Glucose (UA) Neg mg/dL (Negative) 10/02/17 11:40 Urine Ketones Neg mg/dL (Negative) 10/02/17 11:40 Urine Blood Neg (Negative) 10/02/17 11:40 Urine Nitrite Neg (Negative) 10/02/17 11:40 Ur Reducing Substances Not Reportable 10/02/17 11:40 Urine Bilirubin Neg (Negative) 10/02/17 11:40 Urine Ictotest Not Reportable 10/02/17 11:40 Urine Urobilinogen 4.0 mg/dL (<2.0) 10/02/17 11:40 Ur Leukocyte Esterase Neg (Negative) 10/02/17 11:40 Urine WBC (Auto) 6.0 /HPF (0.0-6.0) 10/02/17 11:40 Urine RBC (Auto) 6.0 /HPF (0.0-6.0) 10/02/17 11:40 U Epithel Cells (Auto) 2.0 /HPF (0-13.0) 10/02/17 11:40 Hyaline Casts 2 /LPF 10/02/17 11:40 Urine Mucus 3+ /HPF 10/02/17 11:40
[2017-10-06] MEDS: PAXIL PO SCH (09:25)
[2017-10-06] MEDS: SODIUM CHLORIDE FLUSH SYRINGE 10 ML IV SCH ×3 (09:25→22:05)
--- NOTE | 2017-10-06 11:50 | Progress Note ---
Assessment and Plan 57 yo M with pSBO, resolving Plan: 1. patient is clinically improving, tolerated full liquids, and having bowel function - adv to soft diet for dinner 2. dc IVF 3. prn pain control 4. DVT ppx 5. OOB/ambulate Patient may be discharged from surgery standpoint if tolerates soft diet. Thank you for this consultation, please call with questions or concerns. Subjective Date of service: 10/06/17 Narrative: Pt seen and examined. States he had grits this am without any abd pain, n/v. His crampy abdominal pain has improved. No f/c. Ostomy is functioning well. Objective Vital Signs - 12hr 10/06/17 10/06/17 00:00 05:26 Temperature 98.1 F Pulse Rate 78 Respiratory 20 20 Rate Blood Pressure 156/98 O2 Sat by Pulse 98 Oximetry - General physical appearance Narrative Exam: Gen: AAOx3. NAd CV: S1, S2+ Resp: even and unlabored Abd: soft, NT, ND. ostomy with soft formed light brown stool in the bag Ext: no c/c/e - Labs 10/03/17 05:11 10/05/17 04:21
[2017-10-06] MEDS: MOTRIN PO PRN (17:46)
[2017-10-06] MEDS: AMBIEN PO PRN (22:05)
--- NOTE | 2017-10-07 10:42 | XRay Report ---
AP ABDOMEN: HISTORY: Followup partial small bowel obstruction. The nasogastric tube has been removed since 10/04/17. Mild improvement in dilated small bowel loops is demonstrated. Small bowel dilatation has decreased by 25-50%. Normal gas and stool in the colon. IMPRESSION: 25-50% improvement in the small bowel obstruction pattern.
--- NOTE | 2017-10-07 10:50 | Progress Note ---
Assessment and Plan - Patient Problems (1) Partial bowel obstruction Current Visit: Yes Status: Acute Qualifiers: Intestinal obstruction type: unspecified Qualified Code(s): K56.600 - Partial intestinal obstruction, unspecified as to cause Plan to address problem: Patient appears stable with a benign abdomen. Patient continues to improve each time I see him. I would like to make sure he can tolerate a soft diet and his abdominal film is improving before we discharge them. If indeed the film is better and he is tolerating a diet, I think you'd be safe for discharge tomorrow. I will also start him on Senna to minimize constipation and increased stress to the small intestines. time=10min Subjective Date of service: 10/07/17 Patient Reports: Positive: no new complaints, feels better, tolerating liquids well, flatus, bowel movement. Negative: nausea, vomiting Objective Vital Signs - 12hr 10/07/17 10/07/17 00:20 05:21 Temperature 98.4 F 98.8 F Pulse Rate 57 L 63 Respiratory 20 20 Rate Blood Pressure 148/97 136/92 O2 Sat by Pulse 97 98 Oximetry - General physical appearance no distress, no pain, other (looks better) - Eyes normal occular movement - Respiratory normal expansion, normal respiratory effort - Abdomen soft, tender (minimal in epigastric area), bowel sounds normal, not distended, not guarding, not rigid, surgical scars (well healed), other (ostomy bag with moderate amount of air and stool) - Integumentary no rash, no growths, no abnormal pigmentation - Psychiatric oriented to time, oriented to person, oriented to place, speech is normal, memory intact - Labs 10/03/17 05:11 10/05/17 04:21
[2017-10-07] MEDS: SODIUM CHLORIDE FLUSH SYRINGE 10 ML IV SCH ×2 (11:15→22:21)
[2017-10-07] MEDS: PAXIL PO SCH (11:15)
[2017-10-07] MEDS: MOTRIN PO PRN (18:57)
[2017-10-07] MEDS ORDERED: SENOKOT PO SCH (22:00)
[2017-10-07] MEDS: AMBIEN PO PRN (22:20)
[2017-10-08] MEDS ORDERED: APRESOLINE IV PRN (00:31)
[2017-10-08] MEDS: MOTRIN PO PRN ×2 (02:27→08:32)
[2017-10-08] MEDS: PAXIL PO SCH (12:11)
[2017-10-08] MEDS: SODIUM CHLORIDE FLUSH SYRINGE 10 ML IV SCH (12:12)
[2017-10-08 12:50] VITALS: BP 132/91
--- NOTE | 2017-10-08 13:10 | XRay Report ---
AP ABDOMEN: HISTORY: Increased abdominal pain, partial small bowel obstruction. No overwhelming change is appreciated since yesterday's exam. Mildly dilated loops of small bowel in the upper abdomen appear stable. There is normal gas in distal small bowel loops and colon. IMPRESSION: No change in the partial small bowel obstruction pattern since yesterday's exam.
--- NOTE | 2017-10-08 13:24 | Progress Note ---
Assessment and Plan Assessment and plan: 57-year-old -[place] presented to the emergency department complaining of abdominal pain positive last 2 days. Partial small bowel obstruction - Gen. surgery consult appreciated - Repeat X-ray show no change from yesterday - Patient is on full soft diet - patient started to complain abdominal pain Dehydration - resolved Hypokalemia - repleted - corrected S/P colostomy - Colostomy care Patient is on paxil DVT prophylaxis - SCDs Disposition - Per general surgery. History Interval history: Patient was seen and evaluated this morning, Patient is complaining abdominal pain. Hospitalist Physical - Physical exam Narrative exam: Not in cardiopulmonary distress. The patient appeared well nourished and normally developed. Vital signs as documented. Head exam is unremarkable. No scleral icterus . Neck is without jugular venous distension, thyromegaly, or carotid bruits. Lungs are clear to auscultation. Cardiac exam reveals regular rate and Rhythm. First and second heart sounds normal. No murmurs, rubs or gallops. Abdominal exam reveals colostomy bag in the LLQ, abdomen is soft and nontender. Extremities are nonedematous and both femoral and pedal pulses are normal. 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 No focal weakness. - Constitutional Vitals: Temp Pulse Resp BP Pulse Ox 97.9 F 71 18 132/91 97 10/08/17 12:18 10/08/17 12:18 10/08/17 12:18 10/08/17 12:18 10/08/17 12:18 Results - Labs CBC & Chem 7: 10/03/17 05:11 10/05/17 04:21 Labs: Laboratory Last Values WBC 7.7 K/mm3 (4.5-11.0) 10/03/17 05:11 RBC 4.63 M/mm3 (3.65-5.03) 10/03/17 05:11 Hgb 12.5 gm/dl (11.8-15.2) 10/03/17 05:11 Hct 38.7 % (35.5-45.6) 10/03/17 05:11 MCV 84 fl (84-94) 10/03/17 05:11 MCH 27 pg (28-32) L 10/03/17 05:11 MCHC 32 % (32-34) 10/03/17 05:11 RDW 16.3 % (13.2-15.2) H 10/03/17 05:11 Plt Count 365 K/mm3 (140-440) 10/03/17 05:11 Lymph % (Auto) 11.6 % (13.4-35.0) L 10/03/17 05:11 Villalba % (Auto) 8.6 % (0.0-7.3) H 10/03/17 05:11 Eos % (Auto) 3.7 % (0.0-4.3) 10/03/17 05:11 Baso % (Auto) 0.6 % (0.0-1.8) 10/03/17 05:11 Lymph # 0.9 K/mm3 (1.2-5.4) L 10/03/17 05:11 Villalba # 0.7 K/mm3 (0.0-0.8) 10/03/17 05:11 Eos # 0.3 K/mm3 (0.0-0.4) 10/03/17 05:11 Baso # 0.0 K/mm3 (0.0-0.1) 10/03/17 05:11 Seg Neutrophils % 75.5 % (40.0-70.0) H 10/03/17 05:11 Seg Neutrophils # 5.8 K/mm3 (1.8-7.7) 10/03/17 05:11 PT 12.5 Sec. (12.2-14.9) 10/02/17 06:47 INR 0.89 (0.87-1.13) 10/02/17 06:47 Sodium 137 mmol/L (137-145) 10/05/17 04:21 Potassium 4.8 mmol/L (3.6-5.0) D 10/05/17 04:21 Chloride 98.3 mmol/L (98-107) 10/05/17 04:21 Carbon Dioxide 27 mmol/L (22-30) 10/05/17 04:21 Anion Gap 17 mmol/L 10/05/17 04:21 BUN 8 mg/dL (9-20) L 10/05/17 04:21 Creatinine 0.7 mg/dL (0.8-1.5) L 10/05/17 04:21 Estimated GFR > 60 ml/min 10/05/17 04:21 BUN/Creatinine Ratio 11 % 10/05/17 04:21 Glucose 87 mg/dL (75-100) 10/05/17 04:21 POC Glucose 99 (70-105) 10/02/17 21:56 Calcium 9.2 mg/dL (8.4-10.2) 10/05/17 04:21 Total Bilirubin < 0.20 mg/dL (0.1-1.2) 10/02/17 06:47 Direct Bilirubin 0.2 mg/dL (0-0.2) 10/02/17 06:47 Indirect Bilirubin 0.8 mg/dL 10/02/17 06:47 AST 31 units/L (5-40) 10/02/17 06:47 ALT 15 units/L (7-56) 10/02/17 06:47 Alkaline Phosphatase 101 units/L (35-129) 10/02/17 06:47 Total Protein 7.6 g/dL (6.3-8.2) 10/02/17 06:47 Albumin 3.7 g/dL (3.9-5) L 10/02/17 06:47 Albumin/Globulin Ratio 0.9 % 10/02/17 06:47 Amylase 42 units/L (27-131) 10/02/17 06:47 Lipase 21 units/L (13-60) 10/02/17 06:47 Urine Color Cady (Yellow) 10/02/17 11:40 Urine Turbidity Clear (Clear) 10/02/17 11:40 Urine pH 5.0 (5.0-7.0) 10/02/17 11:40 Ur Specific Lohn 1.060 (1.003-1.030) H 10/02/17 11:40 Urine Protein 30 mg/dl mg/dL (Negative) 10/02/17 11:40 Urine Glucose (UA) Neg mg/dL (Negative) 10/02/17 11:40 Urine Ketones Neg mg/dL (Negative) 10/02/17 11:40 Urine Blood Neg (Negative) 10/02/17 11:40 Urine Nitrite Neg (Negative) 10/02/17 11:40 Ur Reducing Substances Not Reportable 10/02/17 11:40 Urine Bilirubin Neg (Negative) 10/02/17 11:40 Urine Ictotest Not Reportable 10/02/17 11:40 Urine Urobilinogen 4.0 mg/dL (<2.0) 10/02/17 11:40 Ur Leukocyte Esterase Neg (Negative) 10/02/17 11:40 Urine WBC (Auto) 6.0 /HPF (0.0-6.0) 10/02/17 11:40 Urine RBC (Auto) 6.0 /HPF (0.0-6.0) 10/02/17 11:40 U Epithel Cells (Auto) 2.0 /HPF (0-13.0) 10/02/17 11:40 Hyaline Casts 2 /LPF 10/02/17 11:40 Urine Mucus 3+ /HPF 10/02/17 11:40
--- NOTE | 2017-10-08 13:55 | Discharge Summary ---
Providers - Providers Date of Admission: 10/02/17 10:44 Attending physician: JONES JOSHUA MD 10/02/17 10:34 Consult to Physician [CONS] Stat Comment: DR GELLER NOTIFIED 1025 Consulting Provider: IVANIA GELLER Physician Instructions: Reason For Exam: Partial SBO Primary care physician: MOPHEAD SEWER Hospitalization Reason for admission: partial small bowel Obstruction Condition: Stable Pertinent studies: CT abdomen Moderate to high-grade partial small bowel obstruction. KUB IMPRESSION: 25-50% improvement in the small bowel obstruction pattern. Hospital course: 57-year-old -[place] male with medical history significant for rectal history of injury, status post colostomy presented to the emergency department c /o of abdominal pain that started 1 day prior to presentation. Pain started around the periumbilical area, cramping, 10 out of 10 in intensity, with no radiation. Patient denied fever, chills, nausea, vomiting. Patient said he passed stool and gas in the colostomy bag. Imaging showed some obstruction. Surgery consulted and evaluated him. Partial small bowel obstruction - Resolving slowly, surgery consult appreciated Dehydration - resolved Hypokalemia - repleted - corrected S/P colostomy - Colostomy care Patient is on paxil Patient tolerated full liquid diet, he passed stool in to the colostomy bag, abdominal pain subsided and patient discharged home with the advice to advance his diet as tolerated. Disposition: - TO HOME OR SELFCARE Time spent for discharge: 31 minutes - Discharge Diagnoses (1) Abdominal pain Status: Acute Qualifiers: Abdominal location: generalized Qualified Code(s): R10.84 - Generalized abdominal pain (2) Nausea and vomiting Status: Acute Qualifiers: Vomiting type: unspecified Vomiting Intractability: non-intractable Qualified Code(s): R11.2 - Nausea with vomiting, unspecified (3) Partial bowel obstruction Status: Acute Qualifiers: Intestinal obstruction type: unspecified Qualified Code(s): K56.600 - Partial intestinal obstruction, unspecified as to cause (4) Dehydration Status: Resolved Core Measure Documentation - Palliative Care Palliative Care/ Comfort Measures: Not Applicable - Core Measures Any of the following diagnoses?: none Exam - Physical Exam Narrative exam: Not in cardiopulmonary distress. The patient appeared well nourished and normally developed. Vital signs as documented. Head exam is unremarkable. No scleral icterus . Neck is without jugular venous distension, thyromegaly, or carotid bruits. Lungs are clear to auscultation. Cardiac exam reveals regular rate and Rhythm. First and second heart sounds normal. No murmurs, rubs or gallops. Abdominal exam reveals colostomy bag in the LLQ, abdomen is soft and nontender. Extremities are nonedematous and both femoral and pedal pulses are normal. 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 No focal weakness. - Constitutional Vitals: Temp Pulse Resp BP Pulse Ox 97.9 F 71 18 132/91 97 10/08/17 12:18 10/08/17 12:18 10/08/17 12:18 10/08/17 12:18 10/08/17 12:18 Plan Activity: no restrictions Weight Bearing Status: Full Weight Bearing Diet: thickened liquids Additional Instructions: Follow up at [facility] in 1-2 weeks Follow up with: PRIMARY CARE, [Primary Care Provider] - 3-5 Days Prescriptions: Sennosides Tab [Senokot] 17.2 mg PO QHS #15 tablet PARoxetine [Paxil] 20 mg PO QDAY #15 tablet
--- NOTE | 2017-10-08 14:04 | Progress Note ---
Assessment and Plan - Patient Problems (1) Partial bowel obstruction Current Visit: Yes Status: Acute Qualifiers: Intestinal obstruction type: unspecified Qualified Code(s): K56.600 - Partial intestinal obstruction, unspecified as to cause Plan to address problem: Patient appears stable. Appears to be no distress. His x-rays unchanged. His exam was completely benign. He has air and stool in the colostomy bag. Perhaps his diet was advanced rapidly. I advised him to stay on a full liquid diet for now. He can advance his diet slowly as tolerated. He is okay for discharge from my perspective. I have communicated this to the hospitalist. time=10min Subjective Date of service: 10/08/17 Patient Reports: Positive: still having pain (feels a little more pain today. Has soft diet today. ). Negative: nausea, vomiting Objective Vital Signs - 12hr 10/08/17 10/08/17 10/08/17 02:27 03:27 12:18 Temperature 97.9 F Pulse Rate 71 Respiratory 18 18 18 Rate Blood Pressure 132/91 O2 Sat by Pulse 97 Oximetry - General physical appearance no distress, no pain, other (Appears comfortable laying in bed) - Eyes normal occular movement - Respiratory normal expansion, normal respiratory effort - Abdomen soft, tender (intermittent and mild on the right side), bowel sounds normal, not distended, not guarding, not rigid, other (air in colostomy bag) - Integumentary no rash, no growths, no abnormal pigmentation - Psychiatric oriented to time, oriented to person, oriented to place, speech is normal, memory intact - Labs 10/03/17 05:11 10/05/17 04:21
--- NOTE | 2017-10-08 16:28 | Progress Note ---
Assessment and Plan Assessment and plan: 57-year-old -[place] presented to the emergency department complaining of abdominal pain positive last 2 days. Partial small bowel obstruction - Gen. surgery consult appreciated - Repeat X-ray show no change from yesterday - Patient is on full soft diet - patient started to complain abdominal pain Dehydration - resolved Hypokalemia - repleted - corrected S/P colostomy - Colostomy care Patient is on paxil DVT prophylaxis - SCDs Disposition - Per general surgery. - Patient Problems (1) Abdominal pain Current Visit: Yes Status: Acute Qualifiers: Abdominal location: generalized Qualified Code(s): R10.84 - Generalized abdominal pain (2) Nausea and vomiting Current Visit: Yes Status: Acute Qualifiers: Vomiting type: unspecified Vomiting Intractability: non-intractable Qualified Code(s): R11.2 - Nausea with vomiting, unspecified (3) Partial bowel obstruction Current Visit: Yes Status: Acute Qualifiers: Intestinal obstruction type: unspecified Qualified Code(s): K56.600 - Partial intestinal obstruction, unspecified as to cause (4) Dehydration Current Visit: Yes Status: Resolved History Interval history: Patient was seen and evaluated this morning, Patient is complaining abdominal pain. Hospitalist Physical - Physical exam Narrative exam: Not in cardiopulmonary distress. The patient appeared well nourished and normally developed. Vital signs as documented. Head exam is unremarkable. No scleral icterus . Neck is without jugular venous distension, thyromegaly, or carotid bruits. Lungs are clear to auscultation. Cardiac exam reveals regular rate and Rhythm. First and second heart sounds normal. No murmurs, rubs or gallops. Abdominal exam reveals colostomy bag in the LLQ, abdomen is soft and nontender. Extremities are nonedematous and both femoral and pedal pulses are normal. 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 No focal weakness. - Constitutional Vitals: Temp Pulse Resp BP Pulse Ox 97.9 F 71 18 132/91 97 10/08/17 12:18 10/08/17 12:18 10/08/17 12:18 10/08/17 12:18 10/08/17 12:18 Results - Labs CBC & Chem 7: 10/03/17 05:11 10/05/17 04:21 Labs: Laboratory Last Values WBC 7.7 K/mm3 (4.5-11.0) 10/03/17 05:11 RBC 4.63 M/mm3 (3.65-5.03) 10/03/17 05:11 Hgb 12.5 gm/dl (11.8-15.2) 10/03/17 05:11 Hct 38.7 % (35.5-45.6) 10/03/17 05:11 MCV 84 fl (84-94) 10/03/17 05:11 MCH 27 pg (28-32) L 10/03/17 05:11 MCHC 32 % (32-34) 10/03/17 05:11 RDW 16.3 % (13.2-15.2) H 10/03/17 05:11 Plt Count 365 K/mm3 (140-440) 10/03/17 05:11 Lymph % (Auto) 11.6 % (13.4-35.0) L 10/03/17 05:11 [place]ink % (Auto) 8.6 % (0.0-7.3) H 10/03/17 05:11 Eos % (Auto) 3.7 % (0.0-4.3) 10/03/17 05:11 Baso % (Auto) 0.6 % (0.0-1.8) 10/03/17 05:11 Lymph # 0.9 K/mm3 (1.2-5.4) L 10/03/17 05:11 Spink # 0.7 K/mm3 (0.0-0.8) 10/03/17 05:11 Eos # 0.3 K/mm3 (0.0-0.4) 10/03/17 05:11 Baso # 0.0 K/mm3 (0.0-0.1) 10/03/17 05:11 Seg Neutrophils % 75.5 % (40.0-70.0) H 10/03/17 05:11 Seg Neutrophils # 5.8 K/mm3 (1.8-7.7) 10/03/17 05:11 PT 12.5 Sec. (12.2-14.9) 10/02/17 06:47 INR 0.89 (0.87-1.13) 10/02/17 06:47 Sodium 137 mmol/L (137-145) 10/05/17 04:21 Potassium 4.8 mmol/L (3.6-5.0) D 10/05/17 04:21 Chloride 98.3 mmol/L (98-107) 10/05/17 04:21 Carbon Dioxide 27 mmol/L (22-30) 10/05/17 04:21 Anion Gap 17 mmol/L 10/05/17 04:21 BUN 8 mg/dL (9-20) L 10/05/17 04:21 Creatinine 0.7 mg/dL (0.8-1.5) L 10/05/17 04:21 Estimated GFR > 60 ml/min 10/05/17 04:21 BUN/Creatinine Ratio 11 % 10/05/17 04:21 Glucose 87 mg/dL (75-100) 10/05/17 04:21 POC Glucose 99 (70-105) 10/02/17 21:56 Calcium 9.2 mg/dL (8.4-10.2) 10/05/17 04:21 Total Bilirubin < 0.20 mg/dL (0.1-1.2) 10/02/17 06:47 Direct Bilirubin 0.2 mg/dL (0-0.2) 10/02/17 06:47 Indirect Bilirubin 0.8 mg/dL 10/02/17 06:47 AST 31 units/L (5-40) 10/02/17 06:47 ALT 15 units/L (7-56) 10/02/17 06:47 Alkaline Phosphatase 101 units/L (35-129) 10/02/17 06:47 Total Protein 7.6 g/dL (6.3-8.2) 10/02/17 06:47 Albumin 3.7 g/dL (3.9-5) L 10/02/17 06:47 Albumin/Globulin Ratio 0.9 % 10/02/17 06:47 Amylase 42 units/L (27-131) 10/02/17 06:47 Lipase 21 units/L (13-60) 10/02/17 06:47 Urine Color Cady (Yellow) 10/02/17 11:40 Urine Turbidity Clear (Clear) 10/02/17 11:40 Urine pH 5.0 (5.0-7.0) 10/02/17 11:40 Ur Specific [place] 1.060 (1.003-1.030) H 10/02/17 11:40 Urine Protein 30 mg/dl mg/dL (Negative) 10/02/17 11:40 Urine Glucose (UA) Neg mg/dL (Negative) 10/02/17 11:40 Urine Ketones Neg mg/dL (Negative) 10/02/17 11:40 Urine Blood Neg (Negative) 10/02/17 11:40 Urine Nitrite Neg (Negative) 10/02/17 11:40 Ur Reducing Substances Not Reportable 10/02/17 11:40 Urine Bilirubin Neg (Negative) 10/02/17 11:40 Urine Ictotest Not Reportable 10/02/17 11:40 Urine Urobilinogen 4.0 mg/dL (<2.0) 10/02/17 11:40 Ur Leukocyte Esterase Neg (Negative) 10/02/17 11:40 Urine WBC (Auto) 6.0 /HPF (0.0-6.0) 10/02/17 11:40 Urine RBC (Auto) 6.0 /HPF (0.0-6.0) 10/02/17 11:40 U Epithel Cells (Auto) 2.0 /HPF (0-13.0) 10/02/17 11:40 Hyaline Casts 2 /LPF 10/02/17 11:40 Urine Mucus 3+ /HPF 10/02/17 11:40
== END 2017-10-08 17:35 | disposition home or self-care (01) | DRG 390 ==
LOC: ED 22:38 → 3A 10-02 10:44
PROVIDERS: ADMIT Internal Medicine; ATTEND Internal Medicine
PROC: 0D9670Z Drainage of Stomach with Drainage Device, Via Natural or Artificial Opening (ICD-10-PCS; principal; 2017-10-04)
DX: K56.600 Partial intestinal obstruction, unspecified as to cause (principal); Z93.3 Colostomy status; E86.0 Dehydration; F17.210 Nicotine dependence, cigarettes, uncomplicated; E87.6 Hypokalemia
CPT/HCPCS: 36415; 71045; 74018; 74019; 74022; 74177; 80048; 80074; 81001; 82150; 82962; 83690; 85025; 85610; 96361; 96374; 96375; 99406; C9113; J0360; J1170; J1885; J2060; J2270; J2405; J3480; J7030; Q9967